=== PATIENT | female | born 1960 | race Caucasian/White ===

== ENCOUNTER 2020-05-03 18:23 | Emergency (ER) | payer BC ==
[~2020-05-03] VITALS: Ht 167.6 cm; Wt 90.7 kg
[2020-05-03 18:33] VITALS: Ht 167.6 cm; Wt 90.7 kg
[2020-05-03 20:42] VITALS: BP 126/71
== END 2020-05-03 20:42 | disposition home or self-care (01) ==
LOC: ED 18:23
DX: K21.9 Gastro-esophageal reflux disease without esophagitis (principal); R06.02 Shortness of breath; Z88.0 Allergy status to penicillin
CPT/HCPCS: Q0092